=== PATIENT | female | born 1960 | race Two or more races ===

== ENCOUNTER 2021-11-18 17:38 | Inpatient (IN) | payer OTHER ==
[~2021-11-18] VITALS: Ht 172.7 cm; Wt 190.3 kg
[2021-11-18] MEDS ORDERED: SODIUM CHLORIDE 0.9% 1,000 ML IV ONE (21:00)
[2021-11-18] MEDS ORDERED: ONDANSETRON HCL 4 MG/2 ML VIAL IV ONE (22:00)
[2021-11-19 00:18] LABS: Hematocrit 34.1 % (36.0-46.0); Hemoglobin 10.7 g/dL (12.2-16.2); Mean Corpuscular Hemoglobin 27.1 pg (28.0-32.0); Mean Corpuscular Hgb Conc. 31.4 g/dL (32.0-36.0); Mean Corpuscular Volume 86.4 fL (80.0-100.0); Red Blood Cells 3.95 10^6/uL (4.0-5.20); Red Cell Distribution Width 19.5 % (11.8-14.3); White Blood Cell 8.6 10^3/uL (4.4-10.8)
[2021-11-19 00:25] LABS: INR 1.19 (0.9-1.15); Partial Thromboplastin Time 25.7 sec (23.6-33.0)
[2021-11-19] MEDS ORDERED: PANTOPRAZOLE 40 MG/10 ML VIAL INJ IV ONE (00:30)
[2021-11-19 00:32] LABS: Basophils % (manual) 0 (0.0-2.0); Blast Cells 0; Eosinophils % (manual) 0 (0-7); Lactic Acid w/Reflex 4.7 mmol/L (0.4-2.0); Metamyelocytes % 0; Myelocytes % 0; Promyelocytes % 0; Reactive Lymphocytes 0
[2021-11-19 00:47] LABS: Alcohol, Urine < 3.0 mg/dL (0-10); Amphetamine Screen, Urine NEGATIVE (NEGATIVE); Barbiturate Scree,Urine NEGATIVE (NEGATIVE); Benzodiazephine Screen, Urine NEGATIVE (NEGATIVE); Cannabinoid Screen, Urine NEGATIVE (NEGATIVE); Cocaine Screen, Urine NEGATIVE (NEGATIVE); Opiate Scree,Urine NEGATIVE (NEGATIVE); Phencyclidine Screen, Urine NEGATIVE (NEGATIVE)
[2021-11-19 00:52] LABS: BUN/Creatinine Ratio 9.3; Calcium 9.6 mg/dL (8.5-10.1); Magnesium 2.1 mg/dL (1.6-2.6); Potassium 3.8 mmol/L (3.5-5.1)
[2021-11-19 00:55] LABS: Bilirubin, Total 1.9 mg/dL (0.2-1.0); Total Protein 7.6 g/dL (6.4-8.2)
[2021-11-19 00:55] LABS: Urine Bacteria NONE SEEN /hpf (None Seen); Urine Blood TRACE /uL (Negative); Urine Mucus FEW (None Seen); Urine Specific Gravity 1.031 (1.001-1.035); Urine WBC 6 /hpf (0 - 5)
[2021-11-19 01:34] LABS: Band Neutrophils % (manual) 5; Lymphocytes % (manual) 26 (10.0-50.0); Monocytes % (manual) 18 (0-12)
[2021-11-19] MEDS ORDERED: VANCOMYCIN 1GM/250ML 250 ML IV ONE (02:00)
[2021-11-19] MEDS ORDERED: CEFEPIME 2 GM in SODIUM CHL 0.9% 50 ML IV ONE (02:00)
[2021-11-19] MEDS ORDERED: ONDANSETRON HCL 4 MG/2 ML VIAL ONE (06:39)
[2021-11-19] MEDS: ONDANSETRON HCL 4 MG/2 ML VIAL IV PRN ×2 (06:44→14:10)
[2021-11-19] MEDS ORDERED: MORPHINE SULFATE INJECTION 2 MG/ML SYRG IV PRN (10:00)
[2021-11-19] MEDS ORDERED: NITROGLYCERIN 0.4 MG SL TAB SL PRN (10:00)
[2021-11-19] MEDS ORDERED: PIPERACILLIN-TAZOB 3.375GM 100 ML IV ONE (15:15)
[2021-11-19 23:30] VITALS: BP 143/53
[2021-11-20] MEDS: PIPERACILLIN-TAZOB 3.375GM 100 ML IV SCH ×2 (00:49→09:00)
[2021-11-20 01:23] VITALS: BP 136/63
[2021-11-20] MEDS ORDERED: LEVO200T7 PO (01:43)
[2021-11-20] MEDS ORDERED: OMEP20TA85 PO (01:43)
[2021-11-20] MEDS ORDERED: INFLUENZA QUAD 2021-2022 0.5 ML SYRG IM ONE (01:45)
[2021-11-20] MEDS ORDERED: PNEUMOCOCCAL VACC POLYS 25 MCG/0.5 ML VIAL IM ONE (01:45)
[2021-11-20 05:00] VITALS: BP 116/45
[2021-11-20 07:08] LABS: Albumin 2.6 g/dL (3.4-5.0); Calcium 9.2 mg/dL (8.5-10.1); Potassium 3.3 mmol/L (3.5-5.1)
[2021-11-20 07:10] LABS: BUN/Creatinine Ratio 11.2
[2021-11-20 07:15] LABS: Bilirubin, Total 1.8 mg/dL (0.2-1.0); Total Protein 7.1 g/dL (6.4-8.2)
[2021-11-20 07:23] LABS: Hematocrit 29.5 % (36.0-46.0); Hemoglobin 9.7 g/dL (12.2-16.2); Mean Corpuscular Hemoglobin 28.3 pg (28.0-32.0); Mean Corpuscular Hgb Conc. 32.9 g/dL (32.0-36.0); Mean Corpuscular Volume 86.1 fL (80.0-100.0); Red Blood Cells 3.42 10^6/uL (4.0-5.20); Red Cell Distribution Width 19.4 % (11.8-14.3); White Blood Cell 8.7 10^3/uL (4.4-10.8)
[2021-11-20 07:27] LABS: Basophils % (manual) 0 (0.0-2.0); Blast Cells 0; Metamyelocytes % 0; Myelocytes % 0; Promyelocytes % 0; Reactive Lymphocytes 0
[2021-11-20 09:07] VITALS: BP 114/56
[2021-11-20 09:35] LABS: Band Neutrophils % (manual) 1; Eosinophils % (manual) 1 (0-7); Lymphocytes % (manual) 26 (10.0-50.0); Monocytes % (manual) 22 (0-12)
[2021-11-20 13:00] VITALS: BP 114/68
[2021-11-20] MEDS: SODIUM CHLORIDE 0.9% 1,000 ML IV SCH ×6 (15:46→23:10)
[2021-11-20] MEDS: PANTOPRAZOLE 40 MG TAB PO SCH (15:50)
[2021-11-20] MEDS: LEVOTHYROXINE SODIUM 100 MCG TAB PO SCH (15:51)
[2021-11-20 16:30] VITALS: BP 124/66
[2021-11-20 22:00] VITALS: BP 144/52
[2021-11-21 06:06] LABS: Albumin 2.6 g/dL (3.4-5.0); Bilirubin, Direct 0.7 mg/dL (0-0.2)
[2021-11-21 06:10] LABS: Bilirubin, Total 1.6 mg/dL (0.2-1.0)
[2021-11-21] MEDS: LEVOTHYROXINE SODIUM 100 MCG TAB PO SCH (06:51)
[2021-11-21 09:00] VITALS: BP 134/47
[2021-11-21] MEDS: PANTOPRAZOLE 40 MG TAB PO SCH (09:32)
[2021-11-21 12:30] VITALS: BP 135/57
[2021-11-21 17:24] VITALS: BP 140/52
[2021-11-21 22:00] VITALS: BP 138/60
[2021-11-22 05:00] VITALS: BP 143/59
[2021-11-22] MEDS: LEVOTHYROXINE SODIUM 100 MCG TAB PO SCH ×2 (06:54→07:06)
[2021-11-22 08:34] LABS: Lactic Acid w/Reflex 2.3 mmol/L (0.4-2.0)
[2021-11-22 08:35] LABS: Hematocrit 28.2 % (36.0-46.0); Hemoglobin 9.3 g/dL (12.2-16.2); Mean Corpuscular Hemoglobin 28.5 pg (28.0-32.0); Mean Corpuscular Hgb Conc. 32.9 g/dL (32.0-36.0); Mean Corpuscular Volume 86.7 fL (80.0-100.0); Red Blood Cells 3.25 10^6/uL (4.0-5.20); Red Cell Distribution Width 19.2 % (11.8-14.3); White Blood Cell 6.3 10^3/uL (4.4-10.8)
[2021-11-22 08:38] LABS: Potassium 3.1 mmol/L (3.5-5.1)
[2021-11-22] MEDS: PANTOPRAZOLE 40 MG TAB PO SCH (08:44)
[2021-11-22 08:50] LABS: Albumin 2.6 g/dL (3.4-5.0); BUN/Creatinine Ratio 9.6; Bilirubin, Total 1.5 mg/dL (0.2-1.0); Calcium 9.1 mg/dL (8.5-10.1); Total Protein 6.8 g/dL (6.4-8.2)
[2021-11-22 09:00] VITALS: BP 122/49
[2021-11-22 09:35] LABS: Band Neutrophils % (manual) 0; Basophils % (manual) 0 (0.0-2.0); Blast Cells 0; Metamyelocytes % 0; Myelocytes % 0; Promyelocytes % 0
[2021-11-22 12:08] VITALS: BP 114/32
[2021-11-22 12:22] LABS: Eosinophils % (manual) 6 (0-7); Lymphocytes % (manual) 24 (10.0-50.0); Monocytes % (manual) 16 (0-12); Reactive Lymphocytes 1
[2021-11-22 22:25] VITALS: BP 147/50
[2021-11-23 05:00] VITALS: BP 119/53
[2021-11-23 06:15] LABS: Albumin 2.4 g/dL (3.4-5.0); Anion Gap 10 (5-15); Blood Urea Nitrogen 7 mg/dL (7-18); Calcium 8.8 mg/dL (8.5-10.1); Carbon Dioxide 22 mmol/L (21-32); Chloride 105 mmol/L (98-107); Potassium 3.2 mmol/L (3.5-5.1); Sodium 137 mmol/L (136-145)
[2021-11-23 06:18] LABS: Alanine Aminotransferase 64 U/L (13-56); Aspartate Aminotransferase 81 U/L (15-37); BUN/Creatinine Ratio 9.7; GFR African American 105 mL/min; GFR Non-African American 87 mL/min; Glucose 117 mg/dL (74-106)
[2021-11-23 06:21] LABS: Alkaline Phosphatase 63 U/L (45-117); Bilirubin, Total 1.5 mg/dL (0.2-1.0); Total Protein 6.5 g/dL (6.4-8.2)
[2021-11-23] MEDS: LEVOTHYROXINE SODIUM 100 MCG TAB PO SCH (06:29)
[2021-11-23 06:30] LABS: Hematocrit 27.3 % (36.0-46.0); Mean Corpuscular Hemoglobin 28.2 pg (28.0-32.0); Mean Corpuscular Volume 85.5 fL (80.0-100.0); Red Blood Cells 3.19 10^6/uL (4.0-5.20); Red Cell Distribution Width 18.7 % (11.8-14.3); White Blood Cell 6.2 10^3/uL (4.4-10.8)
[2021-11-23 06:45] LABS: Basophils % (manual) 0 (0.0-2.0); Blast Cells 0; Metamyelocytes % 0; Myelocytes % 0; Promyelocytes % 0; Reactive Lymphocytes 0
[2021-11-23 09:00] VITALS: BP 127/64
[2021-11-23 09:34] LABS: Band Neutrophils % (manual) 1; Eosinophils % (manual) 4 (0-7); Lymphocytes % (manual) 42 (10.0-50.0); Monocytes % (manual) 20 (0-12)
[2021-11-23] MEDS: PANTOPRAZOLE 40 MG TAB PO SCH (10:00)
[2021-11-23 13:00] VITALS: BP 129/96
[2021-11-23 17:00] VITALS: BP 134/52
[2021-11-23 21:53] VITALS: BP 124/48
[2021-11-24 05:00] VITALS: BP 119/53
[2021-11-24 05:45] LABS: Hematocrit 28.8 % (36.0-46.0); Hemoglobin 9.3 g/dL (12.2-16.2); Mean Corpuscular Hgb Conc. 32.1 g/dL (32.0-36.0); Mean Corpuscular Volume 87.1 fL (80.0-100.0); Red Blood Cells 3.31 10^6/uL (4.0-5.20); Red Cell Distribution Width 19.5 % (11.8-14.3); White Blood Cell 6.3 10^3/uL (4.4-10.8)
[2021-11-24 05:47] LABS: Basophils % (manual) 0 (0.0-2.0); Blast Cells 0; Metamyelocytes % 0; Myelocytes % 0; Promyelocytes % 0; Reactive Lymphocytes 0
[2021-11-24 06:01] LABS: Albumin 2.5 g/dL (3.4-5.0); Calcium 9.2 mg/dL (8.5-10.1); Potassium 3.2 mmol/L (3.5-5.1)
[2021-11-24 06:03] LABS: BUN/Creatinine Ratio 9.9
[2021-11-24 06:06] LABS: Bilirubin, Total 1.5 mg/dL (0.2-1.0); Total Protein 6.6 g/dL (6.4-8.2)
[2021-11-24] MEDS: LEVOTHYROXINE SODIUM 100 MCG TAB PO SCH (06:40)
[2021-11-24 08:00] VITALS: BP 121/72
[2021-11-24 09:18] LABS: Band Neutrophils % (manual) 1; Eosinophils % (manual) 4 (0-7); Lymphocytes % (manual) 33 (10.0-50.0); Monocytes % (manual) 17 (0-12)
[2021-11-24] MEDS: PANTOPRAZOLE 40 MG TAB PO SCH (10:00)
[2021-11-24] MEDS ORDERED: HYDROcodone-ACET 10/325MG TAB PO PRN (12:30)
[2021-11-24] MEDS: ONDANSETRON HCL 4 MG/2 ML VIAL IV PRN (12:53)
[2021-11-24 13:00] VITALS: BP 117/72
[2021-11-24 17:00] VITALS: BP 121/66
[2021-11-24 20:00] VITALS: BP 115/49
[2021-11-25] VITALS (7 sets, daily range): BP systolic 115–131; BP diastolic 0–66
[2021-11-25 06:11] LABS: Hemoglobin 9.5 g/dL (12.2-16.2); Mean Corpuscular Hemoglobin 29.2 pg (28.0-32.0); Red Blood Cells 3.26 10^6/uL (4.0-5.20); Red Cell Distribution Width 19.5 % (11.8-14.3); White Blood Cell 5.3 10^3/uL (4.4-10.8)
[2021-11-25 06:29] LABS: Basophils % (manual) 0 (0.0-2.0); Blast Cells 0; Metamyelocytes % 0; Myelocytes % 0; Promyelocytes % 0; Reactive Lymphocytes 0
[2021-11-25 06:30] LABS: Calcium 8.8 mg/dL (8.5-10.1); Potassium 3.4 mmol/L (3.5-5.1)
[2021-11-25 06:33] LABS: BUN/Creatinine Ratio 10.3
[2021-11-25] MEDS: LEVOTHYROXINE SODIUM 100 MCG TAB PO SCH (06:39)
[2021-11-25 08:15] LABS: Band Neutrophils % (manual) 1; Eosinophils % (manual) 3 (0-7); Lymphocytes % (manual) 35 (10.0-50.0); Monocytes % (manual) 13 (0-12)
[2021-11-25] MEDS: PANTOPRAZOLE 40 MG TAB PO SCH (10:00)
[2021-11-25] MEDS: ONDANSETRON HCL 4 MG/2 ML VIAL IV PRN (21:58)
[2021-11-26] MEDS: LEVOTHYROXINE SODIUM 100 MCG TAB PO SCH (06:21)
[2021-11-26 08:00] VITALS: BP_DIAS 0
[2021-11-26 09:00] VITALS: BP_SYST 123; BP_SYST 158; BP_DIAS 48; BP_DIAS 78
[2021-11-26] MEDS: PANTOPRAZOLE 40 MG TAB PO SCH (09:53)
[2021-11-26 13:00] VITALS: BP 137/56
[2021-11-26 17:00] VITALS: BP 124/61
[2021-11-26 20:00] VITALS: BP 104/56
[2021-11-26 23:12] VITALS: BP 104/56
[2021-11-27] MEDS: LEVOTHYROXINE SODIUM 100 MCG TAB PO SCH (06:49)
[2021-11-27 07:06] LABS: Hematocrit 32.1 % (36.0-46.0); Hemoglobin 10.3 g/dL (12.2-16.2); Mean Corpuscular Hgb Conc. 32.1 g/dL (32.0-36.0); Mean Corpuscular Volume 87.3 fL (80.0-100.0); Red Blood Cells 3.68 10^6/uL (4.0-5.20); Red Cell Distribution Width 19.9 % (11.8-14.3); White Blood Cell 5.9 10^3/uL (4.4-10.8)
[2021-11-27 07:10] LABS: BUN/Creatinine Ratio 8.5; Basophils % (manual) 0 (0.0-2.0); Blast Cells 0; Calcium 9.2 mg/dL (8.5-10.1); Metamyelocytes % 0; Myelocytes % 0; Potassium 3.5 mmol/L (3.5-5.1); Promyelocytes % 0; Reactive Lymphocytes 0
[2021-11-27 08:50] VITALS: BP 117/48
[2021-11-27 09:06] LABS: Band Neutrophils % (manual) 1; Eosinophils % (manual) 5 (0-7); Lymphocytes % (manual) 30 (10.0-50.0); Monocytes % (manual) 20 (0-12)
[2021-11-27] MEDS: PANTOPRAZOLE 40 MG TAB PO SCH (09:55)
[2021-11-27 13:00] VITALS: BP 120/50
[2021-11-27 17:00] VITALS: BP 119/63
[2021-11-27 20:00] VITALS: BP 120/62
[2021-11-27 22:00] VITALS: BP 120/62
[2021-11-28] MEDS: ONDANSETRON HCL 4 MG/2 ML VIAL IV PRN (01:53)
[2021-11-28 05:00] VITALS: BP 141/58
[2021-11-28] MEDS: LEVOTHYROXINE SODIUM 100 MCG TAB PO SCH (07:00)
[2021-11-28 08:31] VITALS: BP 131/60
[2021-11-28] MEDS: PANTOPRAZOLE 40 MG TAB PO SCH (09:47)
[2021-11-28 12:57] VITALS: BP 130/57
== END 2021-11-28 12:40 | disposition home or self-care (01) | DRG 872 ==
LOC: ER 17:38 → EDBD 17:38 → OVERFLOW 11-19 09:55 → WEST WING 11-19 23:00
PROVIDERS: ADMIT Internal Medicine; ATTEND Internal Medicine Pulmonary Disease
DX: A41.9 Sepsis, unspecified organism (principal); Z68.44 Body mass index [BMI] 60.0-69.9, adult; R53.1 Weakness; E66.01 Morbid (severe) obesity due to excess calories; N93.9 Abnormal uterine and vaginal bleeding, unspecified; R55 Syncope and collapse; E03.9 Hypothyroidism, unspecified; D25.9 Leiomyoma of uterus, unspecified; Z20.822 Contact with and (suspected) exposure to COVID-19; R13.12 Dysphagia, oropharyngeal phase; L29.9 Pruritus, unspecified; F17.200 Nicotine dependence, unspecified, uncomplicated; Z86.16 Personal history of COVID-19; Z87.01 Personal history of pneumonia (recurrent); Z83.3 Family history of diabetes mellitus; Z88.2 Allergy status to sulfonamides
CPT/HCPCS: 36415; 70450; 71045; 76705; 80048; 80053; 80076; 80307; 81001; 82150; 82550; 82962; 83605; 83690; 83735; 84484; 84702; 85007; 85027; 85610; 85730; 87040; 87081; 87086; 87426; 93005; 93306; 95819; 96361; 96365; 96375; 97110; 97163; 97530; C9113; G0378; J2405; J2543

== ENCOUNTER 2021-12-11 09:19 | Inpatient (IN) | payer OTHER ==
[~2021-12-11] VITALS: Ht 170.2 cm; Wt 208.7 kg
[2021-12-11] VITALS (22 sets, daily range): BP systolic 82–114; BP diastolic 33–47
[~2021-12-11 09:19] MED LIST: LEVO200T7 PO; OMEP20TA85 PO
[2021-12-11] MEDS ORDERED: VANCOMYCIN 1GM/250ML 250 ML IV ONE (11:00)
[2021-12-11] MEDS ORDERED: LACTATED RINGER'S 1,000 ML IV ONE ×2 (11:00→14:00)
[2021-12-11] MEDS ORDERED: CEFEPIME 2 GM in SODIUM CHL 0.9% 50 ML IV ONE (11:00)
[2021-12-11] MEDS ORDERED: PANTOPRAZOLE 40mg/50ML NS AE 50 ML IV ONE (11:00)
[2021-12-11] MEDS ORDERED: PANTOPRAZOLE 80 MG in SODIUM CHL 0.9% 100 ML IV ONE (11:00)
[2021-12-11 12:30] LABS: Hemoglobin 8.5 g/dL (12.2-16.2)
[2021-12-11 12:32] LABS: Hematocrit 27.4 % (36.0-46.0); Mean Corpuscular Hemoglobin 27.5 pg (28.0-32.0); Mean Corpuscular Volume 88.7 fL (80.0-100.0); Red Blood Cells 3.09 10^6/uL (4.0-5.20); White Blood Cell 11.2 10^3/uL (4.4-10.8)
[2021-12-11 12:34] LABS: Basophils % (manual) 0 (0.0-2.0); Blast Cells 0; Eosinophils % (manual) 0 (0-7); Metamyelocytes % 0; Myelocytes % 0; Promyelocytes % 0; Reactive Lymphocytes 0
[2021-12-11 12:42] LABS: Urine Bacteria FEW /hpf (None Seen); Urine Blood Negative /uL (Negative); Urine Budding Yeast MODERATE /hpf (None Seen); Urine Mucus FEW (None Seen); Urine Specific Gravity 1.029 (1.001-1.035); Urine WBC 6 /hpf (0 - 5)
[2021-12-11 12:43] LABS: Albumin 2.5 g/dL (3.4-5.0); Anion Gap 26 (5-15); Blood Urea Nitrogen 25 mg/dL (7-18); Calcium 9.1 mg/dL (8.5-10.1); Carbon Dioxide 10 mmol/L (21-32); Chloride 103 mmol/L (98-107); Glucose 146 mg/dL (74-106); INR 1.49 (0.9-1.15); Magnesium 2.8 mg/dL (1.6-2.6); Partial Thromboplastin Time 22.1 sec (23.6-33.0); Potassium 3.3 mmol/L (3.5-5.1); Sodium 139 mmol/L (136-145)
[2021-12-11 12:50] LABS: Lactic Acid w/Reflex 14.1 mmol/L (0.4-2.0)
[2021-12-11 12:52] LABS: Alanine Aminotransferase 272 U/L (13-56); Alkaline Phosphatase 123 U/L (45-117); BUN/Creatinine Ratio 16.3; Bilirubin, Total 3.5 mg/dL (0.2-1.0); GFR African American 44 mL/min; GFR Non-African American 36 mL/min; Total Protein 6.8 g/dL (6.4-8.2)
[2021-12-11] MEDS ORDERED: LORazepam 2MG/ML-1ML VIAL IV ONE (13:15)
[2021-12-11] MEDS ORDERED: metroNIDAZOLE 500MG/100ML 100 ML IV ONE (14:00)
[2021-12-11 14:19] LABS: Band Neutrophils % (manual) 4; Lymphocytes % (manual) 13 (10.0-50.0); Monocytes % (manual) 4 (0-12)
[2021-12-11 14:29] LABS: Aspartate Aminotransferase 631 U/L (15-37)
[2021-12-11] MEDS: POTASSIUM CHL 10MEQ/50ML 50 ML IV SCH ×2 (15:00→16:00)
[2021-12-11] MEDS ORDERED: EPINEPHrine HCL 1 MG/10 ML SYRG ONE (15:09)
[2021-12-11] MEDS ORDERED: ROCURONIUM 10MG/ML 10ML VIAL IV ONE (15:40)
[2021-12-11] MEDS ORDERED: ETOMIDATE (2MG/ML) 20ML VIAL IV ONE (15:40)
[2021-12-11] MEDS: MIDAZOLAM DRIP 50 mg/50mL 50 ML IV SCH (15:45)
[2021-12-11] MEDS: NOREPINEPHRINE 8 MG/250ML KIT 250 ML IV SCH ×2 (15:45→22:07)
[2021-12-11] MEDS ORDERED: EPINEPHrine HCL 1 MG/10 ML SYRG IV ONE (15:45)
[2021-12-11] MEDS ORDERED: DOCUSATE SOD 100 MG CAP PO PRN (16:30)
[2021-12-11] MEDS ORDERED: ACETAMINOPHEN 325 MG TAB PO PRN (16:30)
[2021-12-11] MEDS ORDERED: ONDANSETRON HCL 4 MG/2 ML VIAL IV PRN (16:30)
[2021-12-11] MEDS ORDERED: ALBUMIN 25% 100 ML IV ONE (16:30)
[2021-12-11] MEDS: SODIUM CHLORIDE 0.9% 1,000 ML IV SCH (16:30)
[2021-12-11] MEDS ORDERED: VANCOMYCIN PER PHARMACY 0 MG IV SCH (16:30)
[2021-12-11] MEDS: PANTOPRAZOLE 40 MG/10 ML VIAL INJ IV SCH ×2 (17:00→23:31)
[2021-12-11] MEDS ORDERED: NITROGLYCERIN 0.4 MG SL TAB SL PRN (17:00)
[2021-12-11] MEDS: PIPERACILLIN-TAZOB 2.25GM 50 ML IV SCH ×2 (18:00→23:45)
[2021-12-11] MEDS: EPINEPHrine HCL 250 ML IV SCH (18:30)
[2021-12-11] MEDS: fentaNYL Drip 2500mCg/250mlNS 250 ML IV SCH (19:00)
[2021-12-11 19:35] LABS: Lactic Acid w/Reflex 20.8 mmol/L (0.4-2.0)
[2021-12-11] MEDS: LEVOTHYROXINE SODIUM 100 MCG TAB PO SCH (21:44)
[2021-12-11] MEDS ORDERED: metroNIDAZOLE 500MG/100ML 100 ML IV SCH (22:00)
[2021-12-11] MEDS ORDERED: SODIUM BICARBONATE 8.4 % INJ 50ML VIAL IV ONE ×2 (22:51→23:00)
[2021-12-11] MEDS ORDERED: SODIUM BICARBONATE 50ML VIAL 150 ML in SODIUM CHLORIDE 0.9% 1,000 ML IV SCH ×2 (23:00→23:15)
[2021-12-11] MEDS ORDERED: SODIUM BICARBONATE 50ML VIAL 150 ML in D5W 5% 1,000 ML IV SCH (23:45)
[2021-12-12] VITALS (103 sets, daily range): BP systolic 72–133; BP diastolic 28–56
[2021-12-12] MEDS: SODIUM BICARBONATE 50ML VIAL 150 ML in D5W/SOD CHL 0.45% 1,000 ML IV SCH ×4 (00:54→21:33)
[2021-12-12] MEDS ORDERED: SODIUM BICARBONATE 8.4 % INJ 50ML VIAL IV ONE ×4 (02:26→21:05)
[2021-12-12] MEDS ORDERED: PHENYLEPHRINE IV 250 ML IV ONE (04:47)
[2021-12-12 04:51] LABS: Hemoglobin 7.7 g/dL (12.2-16.2)
[2021-12-12 04:57] LABS: Hematocrit 24.9 % (36.0-46.0); Mean Corpuscular Hgb Conc. 30.9 g/dL (32.0-36.0); Mean Corpuscular Volume 93.7 fL (80.0-100.0); Red Blood Cells 2.65 10^6/uL (4.0-5.20)
[2021-12-12] MEDS ORDERED: VANCOMYCIN 1GM/250ML 250 ML IV SCH (05:00)
[2021-12-12 05:06] LABS: Red Cell Distribution Width 21.2 % (11.8-14.3)
[2021-12-12 05:08] LABS: Basophils % (manual) 0 (0.0-2.0); Blast Cells 0; Eosinophils % (manual) 0 (0-7); Metamyelocytes % 0; Promyelocytes % 0; Reactive Lymphocytes 0
[2021-12-12 05:09] LABS: Albumin 2.5 g/dL (3.4-5.0); Calcium 8.2 mg/dL (8.5-10.1); Magnesium 2.4 mg/dL (1.6-2.6); Potassium 3.8 mmol/L (3.5-5.1)
[2021-12-12 05:21] LABS: Bilirubin, Total 3.8 mg/dL (0.2-1.0); Total Protein 5.7 g/dL (6.4-8.2)
[2021-12-12 05:22] LABS: BUN/Creatinine Ratio 11.8
[2021-12-12 05:26] LABS: Lactic Acid w/Reflex 18.8 mmol/L (0.4-2.0)
[2021-12-12] MEDS: PHENYLEPHRINE IV 250 ML IV SCH ×3 (05:36→13:56)
[2021-12-12] MEDS: PIPERACILLIN-TAZOB 2.25GM 50 ML IV SCH ×4 (05:38→23:22)
[2021-12-12 05:50] LABS: Band Neutrophils % (manual) 17
[2021-12-12 05:55] LABS: Lymphocytes % (manual) 16 (10.0-50.0); Monocytes % (manual) 3 (0-12)
[2021-12-12 05:56] LABS: Myelocytes % 5
[2021-12-12] MEDS: EPINEPHrine HCL 250 ML IV SCH (06:17)
[2021-12-12] MEDS ORDERED: cefTRIAXone 1GM/50ML D5W 50 ML IV SCH (09:00)
[2021-12-12] MEDS: SODIUM CHLORIDE 0.9% 1,000 ML IV SCH ×3 (09:10→21:32)
[2021-12-12] MEDS: PANTOPRAZOLE 40 MG/10 ML VIAL INJ IV SCH ×2 (09:48→21:32)
[2021-12-12] MEDS: AZITHROMYCIN 500MG/ 250ML 250 ML IV SCH (09:49)
[2021-12-12] MEDS: MULTIPLE VITAMIN TAB PO SCH (09:51)
[2021-12-12] MEDS: NOREPINEPHRINE 8 MG/250ML KIT 250 ML IV SCH (09:51)
[2021-12-12] MEDS ORDERED: FAMOTIDINE (10MG/ML) 2ML VL IV SCH (10:00)
[2021-12-12] MEDS ORDERED: ZINC SULFATE 220mg CAP or TAB PO SCH (10:00)
[2021-12-12] MEDS ORDERED: MIDAZOLAM HCL 5 MG/ML-1ML VIAL ONE (10:37)
[2021-12-12] MEDS ORDERED: diphenhdrAMINE HCL 50 MG/1 ML VL ONE (10:37)
[2021-12-12] MEDS ORDERED: fentaNYL CITRATE 100 MCG/2 ML VL ONE (10:37)
[2021-12-12] MEDS: VASOPRESSIN 50 UNITS in D5W 5% 247.5 ML IV SCH (12:45)
[2021-12-12] MEDS ORDERED: BUMETANIDE 2.5mg/10ml (0.25 mg/ml) INJ IV ONE (14:45)
[2021-12-12] MEDS ORDERED: BUMETANIDE INJECTION 10 ML ONE (14:49)
[2021-12-12] MEDS: MIDAZOLAM DRIP 50 mg/50mL 50 ML IV SCH (16:29)
[2021-12-12] MEDS: fentaNYL Drip 2500mCg/250mlNS 250 ML IV SCH (19:00)
[2021-12-12] MEDS: LEVOTHYROXINE SODIUM 100 MCG TAB PO SCH (19:36)
[2021-12-12] MEDS: HYDROCORTISONE SOD SUCC 100 MG/2ML INJ VIAL IV SCH (21:32)
[2021-12-12] MEDS: LINEZOLID 600MG/300ML 300 ML IV SCH (21:33)
[2021-12-13] VITALS (98 sets, daily range): BP systolic 110–162; BP diastolic 37–61
[2021-12-13 00:16] LABS: Hemoglobin 7.3 g/dL (12.2-16.2)
[2021-12-13 00:20] LABS: BUN/Creatinine Ratio 10.5; Calcium 7.1 mg/dL (8.5-10.1); Potassium 3.1 mmol/L (3.5-5.1)
[2021-12-13 00:33] LABS: INR 1.86 (0.9-1.15)
[2021-12-13 00:48] LABS: Hematocrit 22.8 % (36.0-46.0); Mean Corpuscular Hemoglobin 28.3 pg (28.0-32.0); Mean Corpuscular Volume 88.6 fL (80.0-100.0); Red Blood Cells 2.58 10^6/uL (4.0-5.20); Red Cell Distribution Width 19.9 % (11.8-14.3); White Blood Cell 13.3 10^3/uL (4.4-10.8)
[2021-12-13 00:52] LABS: Basophils % (manual) 0 (0.0-2.0); Blast Cells 0; Eosinophils % (manual) 0 (0-7); Promyelocytes % 0; Reactive Lymphocytes 0
[2021-12-13 00:56] LABS: Band Neutrophils % (manual) 8; Lymphocytes % (manual) 10 (10.0-50.0); Metamyelocytes % 1; Monocytes % (manual) 3 (0-12); Myelocytes % 3
[2021-12-13] MEDS ORDERED: POTASSIUM CHL 10MEQ/50ML 200 ML IV ONE (02:33)
[2021-12-13] MEDS: POTASSIUM CHL 10MEQ/50ML 50 ML IV SCH ×4 (03:38→06:54)
[2021-12-13 04:42] LABS: Red Blood Cells 2.54 10^6/uL (4.0-5.20)
[2021-12-13 04:45] LABS: BUN/Creatinine Ratio 10.5; Calcium 7.1 mg/dL (8.5-10.1); Hematocrit 22.2 % (36.0-46.0); Hemoglobin 7.3 g/dL (12.2-16.2); Mean Corpuscular Hemoglobin 28.6 pg (28.0-32.0); Mean Corpuscular Hgb Conc. 32.7 g/dL (32.0-36.0); Mean Corpuscular Volume 87.6 fL (80.0-100.0); Potassium 3.3 mmol/L (3.5-5.1); White Blood Cell 13.6 10^3/uL (4.4-10.8)
[2021-12-13] MEDS: PHENYLEPHRINE IV 250 ML IV SCH ×3 (04:56→13:11)
[2021-12-13 04:59] LABS: INR 1.93 (0.9-1.15); Partial Thromboplastin Time 34.5 sec (23.6-33.0)
[2021-12-13 05:02] LABS: Lactic Acid w/Reflex 14.2 mmol/L (0.4-2.0)
[2021-12-13 05:03] LABS: Red Cell Distribution Width 20.5 % (11.8-14.3)
[2021-12-13 05:04] LABS: Basophils % (manual) 0 (0.0-2.0); Blast Cells 0; Eosinophils % (manual) 0 (0-7); Promyelocytes % 0; Reactive Lymphocytes 0
[2021-12-13] MEDS: PIPERACILLIN-TAZOB 2.25GM 50 ML IV SCH ×3 (05:05→20:24)
[2021-12-13 05:51] LABS: Band Neutrophils % (manual) 11; Lymphocytes % (manual) 7 (10.0-50.0); Metamyelocytes % 1; Monocytes % (manual) 5 (0-12); Myelocytes % 3
[2021-12-13] MEDS: SODIUM BICARBONATE 50ML VIAL 150 ML in D5W/SOD CHL 0.45% 1,000 ML IV SCH ×2 (10:33→20:17)
[2021-12-13] MEDS: MIDAZOLAM DRIP 50 mg/50mL 50 ML IV SCH ×4 (10:38→20:23)
[2021-12-13] MEDS: VASOPRESSIN 50 UNITS in D5W 5% 247.5 ML IV SCH (11:30)
[2021-12-13] MEDS: PANTOPRAZOLE 40 MG/10 ML VIAL INJ IV SCH ×2 (12:33→21:49)
[2021-12-13] MEDS: LEVOTHYROXINE SODIUM 100 MCG TAB PO SCH (12:33)
[2021-12-13] MEDS: HYDROCORTISONE SOD SUCC 100 MG/2ML INJ VIAL IV SCH ×2 (12:33→21:49)
[2021-12-13] MEDS: MULTIPLE VITAMIN TAB PO SCH (12:33)
[2021-12-13] MEDS: LINEZOLID 600MG/300ML 300 ML IV SCH ×2 (12:34→21:49)
[2021-12-13] MEDS: AZITHROMYCIN 500MG/ 250ML 250 ML IV SCH (12:34)
[2021-12-13] MEDS: NOREPINEPHRINE 8 MG/250ML KIT 250 ML IV SCH (13:06)
[2021-12-13] MEDS: SODIUM CHLORIDE 0.9% 1,000 ML IV SCH ×2 (18:00→20:23)
[2021-12-13] MEDS: EPINEPHrine HCL 250 ML IV SCH (18:30)
[2021-12-14] VITALS (100 sets, daily range): BP systolic 92–137; BP diastolic 37–77
[2021-12-14] MEDS: PIPERACILLIN-TAZOB 2.25GM 50 ML IV SCH ×4 (00:30→19:59)
[2021-12-14] MEDS: fentaNYL Drip 2500mCg/250mlNS 250 ML IV SCH ×2 (01:49→19:00)
[2021-12-14] MEDS: MIDAZOLAM DRIP 50 mg/50mL 50 ML IV SCH ×5 (01:50→21:38)
[2021-12-14] MEDS: SODIUM CHLORIDE 0.9% 1,000 ML IV SCH ×2 (04:00→14:11)
[2021-12-14] MEDS: SODIUM BICARBONATE 50ML VIAL 150 ML in D5W/SOD CHL 0.45% 1,000 ML IV SCH ×2 (04:08→06:10)
[2021-12-14 04:35] LABS: Basophils # (auto) 0.1 10 ^3/uL (0-0.2); Basophils % (auto) 0.4 % (0.0-2.0); Eosinophils # (auto) 0 10 ^3/uL (0-0.8); Hematocrit 20.2 % (36.0-46.0); Mean Corpuscular Hemoglobin 28.2 pg (28.0-32.0); Mean Corpuscular Hgb Conc. 32.1 g/dL (32.0-36.0); Mean Corpuscular Volume 87.9 fL (80.0-100.0); Monocytes # (auto) 0.4 10 ^3/uL (0-1.3); Monocytes % (auto) 3.4 % (0.0-12.0); Neutrophils # (auto) 10.2 10 ^3/uL (1.6-8.6); Neutrophils % (auto) 80.2 % (37.0-80.0); White Blood Cell 12.7 10^3/uL (4.4-10.8)
[2021-12-14 04:38] LABS: Hemoglobin 6.5 g/dL (12.2-16.2); Red Cell Distribution Width 20.2 % (11.8-14.3)
[2021-12-14 05:01] LABS: Albumin 2.1 g/dL (3.4-5.0); Bilirubin, Direct 2.8 mg/dL (0-0.2); Total Protein 5.1 g/dL (6.4-8.2)
[2021-12-14 05:05] LABS: Calcium 6.5 mg/dL (8.5-10.1); Potassium 3.2 mmol/L (3.5-5.1)
[2021-12-14 05:07] LABS: BUN/Creatinine Ratio 9.5
[2021-12-14] MEDS: NOREPINEPHRINE 8 MG/250ML KIT 250 ML IV SCH ×2 (06:30→18:53)
[2021-12-14] MEDS: PHENYLEPHRINE IV 250 ML IV SCH ×3 (06:45→23:25)
[2021-12-14 06:51] LABS: INR 1.99 (0.9-1.15)
[2021-12-14] MEDS: AZITHROMYCIN 500MG/ 250ML 250 ML IV SCH (09:43)
[2021-12-14] MEDS: PANTOPRAZOLE 40 MG/10 ML VIAL INJ IV SCH ×2 (09:43→22:15)
[2021-12-14] MEDS: HYDROCORTISONE SOD SUCC 100 MG/2ML INJ VIAL IV SCH ×2 (09:43→22:16)
[2021-12-14] MEDS ORDERED: FUROSEMIDE 20 MG/2 ML VIAL IV ONE (09:45)
[2021-12-14] MEDS ORDERED: SODIUM BICARBONATE 50ML VIAL 150 ML in D5W/SOD CHL 0.45% 1,000 ML IV SCH (09:45)
[2021-12-14] MEDS: MULTIPLE VITAMIN TAB PO SCH (09:50)
[2021-12-14] MEDS: LINEZOLID 600MG/300ML 300 ML IV SCH (09:59)
[2021-12-14] MEDS ORDERED: POTASSIUM CHL 10MEQ/50ML 50 ML IV SCH (11:00)
[2021-12-14] MEDS: VASOPRESSIN 50 UNITS in D5W 5% 247.5 ML IV SCH (11:30)
[2021-12-14] MEDS ORDERED: InsuLIN REG 1unit/0.01ml Soln (100units/ml) SC SCH (12:00)
[2021-12-14] MEDS ORDERED: ACCU-CHEK COMFORT CURVE STRIP VI SCH (12:00)
[2021-12-14] MEDS ORDERED: DEXTROSE (50%) 50ML SYRG IV PRN ×2 (12:30→18:15)
[2021-12-14] MEDS: POTASSIUM CHL 20MEQ/50ML 50 ML IV SCH ×2 (13:30→13:46)
[2021-12-14] MEDS ORDERED: DAPTOMYCIN IV SCH ×2 (15:00→16:00)
[2021-12-14] MEDS ORDERED: SODIUM CHL 0.9% IV SCH ×2 (15:00→16:00)
[2021-12-14] MEDS ORDERED: SODIUM BICARBONATE 50ML VIAL 150 ML in SODIUM CHLORIDE 0.9% 1,000 ML IV SCH (16:00)
[2021-12-14] MEDS: SODIUM BICARBONATE 50ML VIAL 50 ML in SOD CHL 0.45% 1,000 ML IV SCH (17:31)
[2021-12-14] MEDS: EPINEPHrine HCL 250 ML IV SCH (18:07)
[2021-12-14] MEDS: ACCU-CHEK COMFORT CURVE STRIP VI SCH (18:18)
[2021-12-14] MEDS: InsuLIN REG 1unit/0.01ml Soln (100units/ml) SC SCH (18:18)
[2021-12-14 22:13] LABS: INR 1.8 (0.9-1.15)
[2021-12-15] VITALS (82 sets, daily range): BP systolic 94–133; BP diastolic 40–57
[2021-12-15] MEDS ORDERED: InsuLIN REG 1unit/0.01ml Soln (100units/ml) SC SCH
[2021-12-15] MEDS ORDERED: ACCU-CHEK COMFORT CURVE STRIP VI SCH
[2021-12-15] MEDS: InsuLIN REG 1unit/0.01ml Soln (100units/ml) SC SCH ×4 (00:18→18:28)
[2021-12-15] MEDS: ACCU-CHEK COMFORT CURVE STRIP VI SCH ×4 (00:19→18:19)
[2021-12-15] MEDS: MIDAZOLAM DRIP 50 mg/50mL 50 ML IV SCH ×5 (00:30→21:23)
[2021-12-15] MEDS: SODIUM BICARBONATE 50ML VIAL 50 ML in SOD CHL 0.45% 1,000 ML IV SCH ×5 (01:27→21:21)
[2021-12-15] MEDS: PIPERACILLIN-TAZOB 2.25GM 50 ML IV SCH ×2 (01:30→08:33)
[2021-12-15 04:46] LABS: Eosinophils # (auto) 0 10 ^3/uL (0-0.8); Monocytes # (auto) 0.4 10 ^3/uL (0-1.3)
[2021-12-15 04:49] LABS: Basophils # (auto) 0.1 10 ^3/uL (0-0.2); Basophils % (auto) 0.5 % (0.0-2.0); Hematocrit 24.6 % (36.0-46.0); Hemoglobin 8.3 g/dL (12.2-16.2); Lymphocytes # (auto) 1.6 10 ^3/uL (0.4-5.4); Lymphocytes % (auto) 15.8 % (10.0-50.0); Mean Corpuscular Hemoglobin 29.3 pg (28.0-32.0); Mean Corpuscular Hgb Conc. 33.7 g/dL (32.0-36.0); Monocytes % (auto) 3.6 % (0.0-12.0); Neutrophils # (auto) 8.1 10 ^3/uL (1.6-8.6); Neutrophils % (auto) 80.1 % (37.0-80.0); Red Blood Cells 2.83 10^6/uL (4.0-5.20); Red Cell Distribution Width 18.4 % (11.8-14.3); White Blood Cell 10.1 10^3/uL (4.4-10.8)
[2021-12-15 04:59] LABS: Potassium 3.4 mmol/L (3.5-5.1)
[2021-12-15 05:00] LABS: Nucleated Red Blood Cells % 4.6 %
[2021-12-15 05:05] LABS: Albumin 2.2 g/dL (3.4-5.0); BUN/Creatinine Ratio 9.9; Bilirubin, Total 4.4 mg/dL (0.2-1.0); Total Protein 5.5 g/dL (6.4-8.2)
[2021-12-15] MEDS: LEVOTHYROXINE SODIUM 100 MCG TAB PO SCH (05:06)
[2021-12-15 05:08] LABS: INR 1.84 (0.9-1.15)
[2021-12-15 05:23] LABS: Calcium 5.8 mg/dL (8.5-10.1)
[2021-12-15] MEDS: PHENYLEPHRINE IV 250 ML IV SCH ×2 (07:45→16:05)
[2021-12-15] MEDS: PANTOPRAZOLE 40 MG/10 ML VIAL INJ IV SCH ×2 (09:30→21:20)
[2021-12-15] MEDS: AZITHROMYCIN 500MG/ 250ML 250 ML IV SCH (09:30)
[2021-12-15] MEDS: HYDROCORTISONE SOD SUCC 100 MG/2ML INJ VIAL IV SCH ×2 (09:30→21:20)
[2021-12-15] MEDS: MULTIPLE VITAMIN TAB PO SCH (09:31)
[2021-12-15] MEDS: SODIUM CHLORIDE 0.9% 1,000 ML IV SCH ×2 (10:00)
[2021-12-15 11:22] LABS: Hepatitis B Surface Antibody Negative (Negative)
[2021-12-15] MEDS: VASOPRESSIN 50 UNITS in D5W 5% 247.5 ML IV SCH (11:30)
[2021-12-15] MEDS: fentaNYL Drip 2500mCg/250mlNS 250 ML IV SCH (11:42)
[2021-12-15 12:01] LABS: Hepatitis A Total Antibody Positive (Negative)
[2021-12-15 13:26] LABS: Hepatitis C Antibody Negative (Negative)
[2021-12-15] MEDS: CALCIUM ACETATE 667 MG CAP NG SCH ×2 (13:49→21:21)
[2021-12-15 13:57] LABS: Lactic Acid w/Reflex 13.4 mmol/L (0.4-2.0)
[2021-12-15] MEDS: EPINEPHrine HCL 250 ML IV SCH (18:30)
[2021-12-15] MEDS: CEFEPIME 2 GM in SODIUM CHL 0.9% 50 ML IV SCH (21:19)
[2021-12-16] VITALS (44 sets, daily range): BP systolic 72–127; BP diastolic 21–70
[2021-12-16] MEDS: PHENYLEPHRINE IV 250 ML IV SCH ×5 (00:25→22:47)
[2021-12-16] MEDS: InsuLIN REG 1unit/0.01ml Soln (100units/ml) SC SCH ×4 (00:36→23:58)
[2021-12-16] MEDS: ACCU-CHEK COMFORT CURVE STRIP VI SCH ×4 (00:50→23:59)
[2021-12-16] MEDS: NOREPINEPHRINE 8 MG/250ML KIT 250 ML IV SCH ×3 (01:49→23:57)
[2021-12-16] MEDS: MIDAZOLAM DRIP 50 mg/50mL 50 ML IV SCH ×3 (03:11→20:19)
[2021-12-16 04:22] LABS: Eosinophils # (auto) 0 10 ^3/uL (0-0.8); Lymphocytes # (auto) 1.6 10 ^3/uL (0.4-5.4); Mean Corpuscular Volume 86.9 fL (80.0-100.0)
[2021-12-16 04:26] LABS: Basophils # (auto) 0.1 10 ^3/uL (0-0.2); Basophils % (auto) 0.8 % (0.0-2.0); Hematocrit 25.6 % (36.0-46.0); Hemoglobin 8.6 g/dL (12.2-16.2); Lymphocytes % (auto) 14.8 % (10.0-50.0); Mean Corpuscular Hemoglobin 29.4 pg (28.0-32.0); Mean Corpuscular Hgb Conc. 33.8 g/dL (32.0-36.0); Monocytes # (auto) 0.5 10 ^3/uL (0-1.3); Monocytes % (auto) 4.3 % (0.0-12.0); Neutrophils # (auto) 8.6 10 ^3/uL (1.6-8.6); Neutrophils % (auto) 80.1 % (37.0-80.0); Nucleated Red Blood Cells % 2.2 %; Red Blood Cells 2.94 10^6/uL (4.0-5.20); Red Cell Distribution Width 18.6 % (11.8-14.3); White Blood Cell 10.8 10^3/uL (4.4-10.8)
[2021-12-16 04:32] LABS: Potassium 3.8 mmol/L (3.5-5.1)
[2021-12-16 04:35] LABS: BUN/Creatinine Ratio 10.8
[2021-12-16 05:07] LABS: Calcium 5.9 mg/dL (8.5-10.1)
[2021-12-16] MEDS: CALCIUM ACETATE 667 MG CAP NG SCH ×3 (05:35→22:17)
[2021-12-16] MEDS: LEVOTHYROXINE SODIUM 100 MCG TAB PO SCH (05:37)
[2021-12-16] MEDS: HYDROCORTISONE SOD SUCC 100 MG/2ML INJ VIAL IV SCH ×2 (09:28→22:16)
[2021-12-16] MEDS: PANTOPRAZOLE 40 MG/10 ML VIAL INJ IV SCH ×2 (09:28→22:16)
[2021-12-16] MEDS: AZITHROMYCIN 500MG/ 250ML 250 ML IV SCH (09:29)
[2021-12-16] MEDS: MULTIPLE VITAMIN TAB PO SCH (09:30)
[2021-12-16] MEDS: VASOPRESSIN 50 UNITS in D5W 5% 247.5 ML IV SCH ×2 (11:30→23:27)
[2021-12-16] MEDS: SODIUM BICARBONATE 50ML VIAL 50 ML in SOD CHL 0.45% 1,000 ML IV SCH (12:27)
[2021-12-16] MEDS: CALCIUM GLUC 1,000mg/50ml-NS 50 ML IV SCH ×3 (15:07→17:06)
[2021-12-16] MEDS ORDERED: HEPARIN SODIUM (PORCINE) 5000 UNITS/ML 1ML VIAL ONE (16:50)
[2021-12-16] MEDS: fentaNYL Drip 2500mCg/250mlNS 250 ML IV SCH (19:28)
[2021-12-16] MEDS: CEFEPIME 2 GM in SODIUM CHL 0.9% 50 ML IV SCH (21:16)
[2021-12-16] MEDS: EPINEPHrine HCL 250 ML IV SCH (22:42)
[2021-12-16] MEDS ORDERED: VASOPRESSIN 20 UNIT/ML ONE (23:15)
[2021-12-17] VITALS (43 sets, daily range): BP systolic 7–113; BP diastolic 12–50
[2021-12-17] MEDS: SODIUM BICARBONATE 50ML VIAL 50 ML in SOD CHL 0.45% 1,000 ML IV SCH ×2 (00:30→07:30)
[2021-12-17] MEDS ORDERED: SODIUM BICARBONATE 8.4 % INJ 50ML VIAL IV ONE ×3 (01:30→11:40)
[2021-12-17] MEDS: SODIUM BICARBONATE 50ML VIAL 150 ML in SOD CHL 0.45% 1,000 ML IV SCH ×2 (02:18→09:07)
[2021-12-17] MEDS: PHENYLEPHRINE IV 250 ML IV SCH ×2 (02:28→04:23)
[2021-12-17] MEDS: MIDAZOLAM DRIP 50 mg/50mL 50 ML IV SCH (03:37)
[2021-12-17] MEDS: EPINEPHrine HCL 250 ML IV SCH (03:44)
[2021-12-17] MEDS: NOREPINEPHRINE 8 MG/250ML KIT 250 ML IV SCH (03:45)
[2021-12-17 04:30] LABS: Hematocrit 18.3 % (36.0-46.0); Mean Corpuscular Hemoglobin 29.1 pg (28.0-32.0); Mean Corpuscular Volume 93.8 fL (80.0-100.0); Red Blood Cells 1.95 10^6/uL (4.0-5.20); White Blood Cell 7.5 10^3/uL (4.4-10.8)
[2021-12-17 04:39] LABS: Hemoglobin 5.7 g/dL (12.2-16.2); Red Cell Distribution Width 20.1 % (11.8-14.3)
[2021-12-17 04:41] LABS: Basophils % (manual) 0 (0.0-2.0); Blast Cells 0; Metamyelocytes % 0; Monocytes % (manual) 0 (0-12); Promyelocytes % 0
[2021-12-17 04:43] LABS: Albumin 1.3 g/dL (3.4-5.0); Potassium 4.6 mmol/L (3.5-5.1)
[2021-12-17 05:02] LABS: BUN/Creatinine Ratio 9.8; Bilirubin, Direct 2.5 mg/dL (0-0.2); Bilirubin, Total 3.2 mg/dL (0.2-1.0); Total Protein 3.6 g/dL (6.4-8.2)
[2021-12-17 05:17] LABS: Calcium 5.7 mg/dL (8.5-10.1)
[2021-12-17] MEDS: CALCIUM ACETATE 667 MG CAP NG SCH ×2 (05:59→12:26)
[2021-12-17] MEDS: InsuLIN REG 1unit/0.01ml Soln (100units/ml) SC SCH ×3 (06:00→12:00)
[2021-12-17] MEDS: ACCU-CHEK COMFORT CURVE STRIP VI SCH ×3 (06:00→12:28)
[2021-12-17] MEDS: LEVOTHYROXINE SODIUM 100 MCG TAB PO SCH (06:28)
[2021-12-17 06:57] LABS: Band Neutrophils % (manual) 20; Eosinophils % (manual) 1 (0-7); Lymphocytes % (manual) 14 (10.0-50.0); Myelocytes % 3; Reactive Lymphocytes 1
[2021-12-17] MEDS ORDERED: SODIUM CHL 0.9% 1000 ML BAG XX ONE (07:00)
[2021-12-17] MEDS ORDERED: DOPamine 1600MCG/ML D5W 250 ML IV ONE (08:17)
[2021-12-17] MEDS: DOPamine 1600MCG/ML D5W 250 ML IV SCH ×2 (08:24→12:29)
[2021-12-17] MEDS: MULTIPLE VITAMIN TAB PO SCH (10:00)
[2021-12-17] MEDS: PANTOPRAZOLE 40 MG/10 ML VIAL INJ IV SCH (10:00)
[2021-12-17] MEDS ORDERED: NOREPINEPHRINE BITARTRATE 32 MG in SODIUM CHL 0.9% 218 ML IV SCH (10:00)
[2021-12-17] MEDS ORDERED: PHENYLEPHRINE INJ 80 MG in SODIUM CHL 0.9% 242 ML IV SCH (10:00)
[2021-12-17] MEDS: HYDROCORTISONE SOD SUCC 100 MG/2ML INJ VIAL IV SCH (10:00)
[2021-12-17] MEDS: AZITHROMYCIN 500MG/ 250ML 250 ML IV SCH (10:00)
[2021-12-17] MEDS ORDERED: EPINEPHrine HCL INJECTION 16 MG in D5W 5% 234 ML IV SCH (10:00)
[2021-12-17] MEDS ORDERED: CALCIUM GLUC 1,000mg/50ml-NS 50 ML IV ONE (11:00)
[2021-12-17] MEDS ORDERED: SODIUM BICARBONATE 50ML VIAL 150 ML in D5W 5% 1,000 ML IV SCH (11:00)
[2021-12-17] MEDS ORDERED: PHENYLEPHRINE IV 250 ML IV ONE (11:39)
[2021-12-17 13:20] LABS: Red Blood Cells 1.49 10^6/uL (4.0-5.20)
[2021-12-17 13:22] LABS: Mean Corpuscular Hemoglobin 29.2 pg (28.0-32.0); Mean Corpuscular Hgb Conc. 31.1 g/dL (32.0-36.0); Red Cell Distribution Width 17.8 % (11.8-14.3)
[2021-12-17 13:31] LABS: Hemoglobin 4.4 g/dL (12.2-16.2)
[2021-12-17 13:33] LABS: Basophils % (manual) 0 (0.0-2.0); Blast Cells 0; Eosinophils % (manual) 0 (0-7); Metamyelocytes % 0; Myelocytes % 0; Promyelocytes % 0; Reactive Lymphocytes 0
[2021-12-17 14:39] LABS: Band Neutrophils % (manual) 4; Lymphocytes % (manual) 27 (10.0-50.0); Monocytes % (manual) 9 (0-12)
[2021-12-17] MEDS ORDERED: EPOETIN ALFA-EPBX 10,000 UNIT/1ML VIAL SC ONE (21:00)
[2021-12-17] MEDS ORDERED: SODIUM BICARBONATE 8.4% INJ 50ML SYRINGE IV ONE (23:51)
[2021-12-17] MEDS ORDERED: EPINEPHrine HCL 1 MG/10 ML SYRG IV ONE (23:51)
== END 2021-12-17 23:52 | DRG 870 ==
LOC: EDBD 09:19 → EDUNIT# 09:19 → ER 09:19 → TELE 16:49 → ICU WEST 19:53
PROVIDERS: ADMIT Nurse Practitioner Family; ATTEND Internal Medicine Pulmonary Disease
PROC: 30233N1 Transfusion of Nonautologous Red Blood Cells into Peripheral Vein, Percutaneous Approach (ICD-10-PCS; principal; 2021-12-11)
PROC: 05HD33Z Insertion of Infusion Device into Right Cephalic Vein, Percutaneous Approach (ICD-10-PCS; 2021-12-11)
PROC: B54MZZA Ultrasonography of Right Upper Extremity Veins, Guidance (ICD-10-PCS; 2021-12-11)
PROC: 5A1955Z Respiratory Ventilation, Greater than 96 Consecutive Hours (ICD-10-PCS; 2021-12-11)
PROC: 0BH17EZ Insertion of Endotracheal Airway into Trachea, Via Natural or Artificial Opening (ICD-10-PCS; 2021-12-11)
PROC: 0DJ08ZZ Inspection of Upper Intestinal Tract, Via Natural or Artificial Opening Endoscopic (ICD-10-PCS; 2021-12-12)
PROC: 30233K1 Transfusion of Nonautologous Frozen Plasma into Peripheral Vein, Percutaneous Approach (ICD-10-PCS; 2021-12-13)
PROC: 30233R1 Transfusion of Nonautologous Platelets into Peripheral Vein, Percutaneous Approach (ICD-10-PCS; 2021-12-13)
PROC: 30233M1 Transfusion of Nonautologous Plasma Cryoprecipitate into Peripheral Vein, Percutaneous Approach (ICD-10-PCS; 2021-12-14)
PROC: 06HY33Z Insertion of Infusion Device into Lower Vein, Percutaneous Approach (ICD-10-PCS; 2021-12-16)
PROC: 5A1D70Z Performance of Urinary Filtration, Intermittent, Less than 6 Hours Per Day (ICD-10-PCS; 2021-12-16)
PROC: 5A12012 Performance of Cardiac Output, Single, Manual (ICD-10-PCS; 2021-12-17)
DX: A41.2 Sepsis due to unspecified staphylococcus (principal); G93.41 Metabolic encephalopathy; J96.01 Acute respiratory failure with hypoxia; R65.21 Severe sepsis with septic shock; D65 Disseminated intravascular coagulation [defibrination syndrome]; J15.20 Pneumonia due to staphylococcus, unspecified; N17.0 Acute kidney failure with tubular necrosis; N39.0 Urinary tract infection, site not specified; Z68.44 Body mass index [BMI] 60.0-69.9, adult; E87.2 Acidosis; Z20.822 Contact with and (suspected) exposure to COVID-19; K94.21 Gastrostomy hemorrhage; I46.9 Cardiac arrest, cause unspecified; E86.0 Dehydration; E66.01 Morbid (severe) obesity due to excess calories; D64.9 Anemia, unspecified; N18.9 Chronic kidney disease, unspecified; K29.70 Gastritis, unspecified, without bleeding; E03.9 Hypothyroidism, unspecified; K76.0 Fatty (change of) liver, not elsewhere classified; I95.9 Hypotension, unspecified; Z88.2 Allergy status to sulfonamides
CPT/HCPCS: 31500; 36415; 36600; 43235; 51702; 71045; 76705; 76775; 80048; 80053; 80076; 81001; 82805; 82962; 83036; 83605; 83615; 83735; 84100; 84132; 84443; 84484; 85007; 85025; 85027; 85379; 85384; 85610; 85730; 86704; 86706; 86708; 86803; 86850; 86900; 86901; 86920; 87040; 87070; 87077; 87081; 87186; 87205; 87340; 90935; 92950; 93005; 94002; 94003; 96365; 96368; 96375; 99291; C9113; G0378; J0171; J2250; J2543; J3490; J7060; P9047